=== PATIENT | female | born 1940 | race Caucasian/White ===

== ENCOUNTER 2022-04-11 14:00 | Inpatient (IN) | payer OTHER, BC ==
[~2022-04-11] VITALS: Ht 162.6 cm; Wt 70.8 kg
--- NOTE | 2022-04-11 13:40 | NUR ---
miss Odell has arrived from [facility]. She will be admitted by this web content writer to room 102-A. she has been assessed as indicated. She denies pain at this time. She states that she does have pain if she stands or moves in certain ways. She has been noted to be both pleasant and cooperative. She arrived via [facility] ambulance service unit [facility] staffed by Avni Malcolm. Her son Misha soon arrived to bedside. The plan at this time is to have surgical repair to her Right hip this evening. She states that she fell 04/05/22 but wa unaware of the fracture until a ED visit. She states that she lives in independent living at [facility] in [place].
[2022-04-11 13:45] VITALS: BP_SYST 147
[2022-04-11] MEDS ORDERED: KETOROLAC TROMETHAMINE 30 MG VIAL ONE (14:22)
--- NOTE | 2022-04-11 15:20 | NUR ---
CONSULT MEDICAL MANAGEMENT S/P HIP FRACTURE DR SUÁREZ,[facility] [phone] S/W SALLY OFFICE
[2022-04-11] MEDS ORDERED: ALEN10TA25 PO (15:49)
[2022-04-11] MEDS ORDERED: METF-518 PO (15:49)
[2022-04-11] MEDS ORDERED: TOPXL100 PO (15:49)
[2022-04-11] MEDS ORDERED: LISI1TAB55 PO (15:49)
[2022-04-11 16:08] VITALS: BP_SYST 147
[2022-04-11] MEDS ORDERED: KETOROLAC TROMETHAMINE 30 MG VIAL IVP ONE (16:45)
[2022-04-11] MEDS ORDERED: NACL 0.9% 1,000 ML IV ONE (18:15)
--- NOTE | 2022-04-11 19:45 | NUR ---
Handoff has nenita given to Erin
[2022-04-11 20:00] VITALS: BP_SYST 148
[2022-04-11] MEDS ORDERED: ENOXAPARIN SODIUM 40 MG/0.4 ML SYRINGE SUBCUT ONE (20:00)
[2022-04-11] MEDS ORDERED: ZOLPIDEM TARTRATE 5 MG TABLET PO PRN (20:15)
[2022-04-11] MEDS ORDERED: ONDANSETRON HCL 4 MG/2 ML VIAL IVP PRN (20:15)
[2022-04-11] MEDS ORDERED: POTASSIUM CHLORIDE 20 MEQ TAB.PRT.SR PO PRN (20:15)
[2022-04-11] MEDS ORDERED: MORPHINE 2 MG/ML INJ. SYRINGE IVP PRN (20:15)
[2022-04-11] MEDS ORDERED: MAGNESIUM SULFATE 50 ML IV PRN (20:15)
[2022-04-11] MEDS ORDERED: DOCUSATE SODIUM 100 MG CAPSULE PO PRN (20:15)
[2022-04-11] MEDS ORDERED: MUPIROCIN 2% TOPICAL OINTMENT 22 GM NS PRN (20:15)
[2022-04-11] MEDS ORDERED: NALOXONE HCL 0.4 MG/ML AMP (NARCAN) IVP PRN ×2 (20:15)
[2022-04-11] MEDS ORDERED: ACETAMINOPHEN 325 MG TABLET PO PRN (20:15)
[2022-04-11] MEDS ORDERED: LORazepam 2 MG/ML VIAL IVP PRN (20:15)
[2022-04-11] MEDS: NACL 0.9% 1,000 ML IV SCH (20:41)
[2022-04-11] MEDS ORDERED: HEPARIN SODIUM,PORCINE 5,000 UNITS/ML VIAL SUBCUT SCH (21:00)
[2022-04-12 02:23] VITALS: BP_SYST 132
--- NOTE | 2022-04-12 02:55 | NUR ---
CONSULT: CONSULT CALLED FOR DR. GAN I SPOKE WITH JEANNE JIN REASON FOR CONSULT: CARDIAC CLEARANCE REQUESTING CONSULT: DR. SUÁREZ DIESEL TRACTOR ENGINE MECHANIC PHONE NUMBER: [phone]
--- NOTE | 2022-04-12 02:57 | NUR ---
CONSULT FOR SEBLE KOEHLER CALLED TO PLACE A CONSULT LEFT A MESSAGE IN A MAIL BOX WITH PATIENT'S NAME AND ROOM NUMBER OUR PHONE NUMBER
--- NOTE | 2022-04-12 06:00 | NUR ---
PT RESTING COMFORTABLY IN BED, AOX3, NO DISTRESS OR DISCOMFORT NOTED, BREATHING EVEN AND UNLABORED,NO CHANGES NOTED THROUGHOUT THE SHIFT, ALL FALL PROTOCOLS MAINTAINED, MEDICATED PRN PAIN MED X1, REPOSITIONED PER COMFORT, ALL CARE RENDERED TO PT AT THIS TIME, WILL ENDORSED TO AM NURSE FOR CONTINUITY OF CARE.
[2022-04-12 06:46] LABS: BASOPHILS # (AUTO) 0.1 K/uL (0.0-0.2); BASOPHILS % (AUTO) 0.8 % (0.0-2.0); EOSINOPHILS # (AUTO) 0.1 K/uL (0.0-0.4); EOSINOPHILS % (AUTO) 1.5 % (0.0-4.0); HEMATOCRIT 34.2 % (36-48); HEMOGLOBIN 11.9 g/dL (12.0-16.0); LYMPHOCYTES # (AUTO) 1.2 K/uL (1.0-5.5); LYMPHOCYTES % (AUTO) 13.1 % (20.5-51.5); MEAN CORPUSCULAR HEMOGLOBIN 30 pg (27-31); MEAN CORPUSCULAR HGB CONC 35 % (32-36); MEAN CORPUSCULAR VOLUME 86 fL (79.0-98.0); MONOCYTES # (AUTO) 0.9 K/uL (0.0-1.0); NEUTROPHILS # (AUTO) 6.7 K/uL (1.8-7.7); NEUTROPHILS % (AUTO) 74.6 % (40.0-70.0); PLATELET COUNT (AUTO) 321 K/uL (130-430); RED BLOOD CELL COUNT(AUTO) 3.97 MIL/uL (4.2-6.2); RED CELL DISTRIBUTION WIDTH 13.7 % (9.0-15.0)
[2022-04-12 06:58] LABS: ANION GAP 11 (5-15); CALCIUM 8.5 mg/dL (8.4-11.0); CHLORIDE 94 mmol/L (98-107); CREATININE 0.55 mg/dL (0.55-1.30); GLUCOSE 99 mg/dL (70-99); POTASSIUM 3.4 mmol/L (3.5-5.1); SODIUM SERUM 128 mmol/L (136-145); UREA NITROGEN, BLOOD 10 mg/dL (8-21)
--- NOTE | 2022-04-12 07:25 | NUR ---
SHIFT REPORT REPORT GIVEN TO SHIRIN RN FOR CONTINUITY OF CARE ALL QUESTIONS WERE ANSWERED AND RN VERBALIZED UNDERSTANDING.
[2022-04-12 08:00] VITALS: BP_SYST 154
[2022-04-12] MEDS: METOPROLOL SUCCINATE 50 MG TAB.SR.24H (TOPROL XL) PO SCH (09:39)
[2022-04-12 10:20] LABS: INR 1.1 (0.8-1.2); PROTHROMBIN TIME 11.1 SECS (9.5-12.5)
[2022-04-12 10:28] LABS: BILIRUBIN,URINE NEGATIVE (NEGATIVE); BLOOD, URINE NEGATIVE (NEGATIVE); CLARITY/URINE CLEAR (CLEAR); COLOR,URINE YELLOW (YELLOW); GLUCOSE,URINE NEGATIVE (NEGATIVE); KETONES,URINE TRACE (NEGATIVE); LEUKOCYTE ESTERASE ,URINE NEGATIVE (NEGATIVE); NITRITE, URINE NEGATIVE (NEGATIVE); PH,URINE 6.5 (5.0-8.0); PROTEIN URINE NEGATIVE (NEGATIVE); UROBILINOGEN,URINE 0.2 (0.2-1.0)
[2022-04-12] MEDS: NACL 0.9% 1,000 ML IV SCH (10:33)
[2022-04-12 11:29] VITALS: BP_SYST 147
[2022-04-12 15:17] VITALS: BP_SYST 137
[2022-04-12] MEDS: ENOXAPARIN SODIUM 40 MG/0.4 ML SYRINGE SUBCUT SCH (17:23)
--- NOTE | 2022-04-12 18:00 | NUR ---
NEUROVASCULAR CHECK TO RLE INTACT. NO C/O PAIN THROUGHOUT THE SHIFT. PT REMAINS AWAKE. ALERT,AND COHERENT. PLAN IS FOR SURGERY TOMORROW AT 4:30 PM. PT AND HER SON ARE AWARE OF PLAN FOR SURGERY TOMORROW. RESPIRATIONS EVEN ET UNLABORED. PT WAS CLEARED VIA CARDIAC TODAY FOR SURGERY. POTASSIUM REPLACED PER ORDERED PO. PT CONT ON IVF'S.
--- NOTE | 2022-04-12 20:00 | NUR ---
REC'D PT IN BED AOX4, NO DISTRESS OR DISCOMFORT NOTED, BREATHING EVEN AND UNLABORED, DENIES PAIN, VITAL SIGNS STABLE, PT RESTING COMFORTABLY IN BED, ALL FALL PROTOCOLS MAINTAINED, BED IN LOWEST POSITION, CALL LIGHT WITHIN REACH, EDUCATED PT TO CALL FOR ASSISTANCE WHEN NEEDED, PT VERBALIZED UNDERSTANDING, WILL CONTINUE TO MONITOR.
[2022-04-13 00:02] VITALS: BP_SYST 133
[2022-04-13] MEDS: NACL 0.9% 1,000 ML IV SCH (00:56)
--- NOTE | 2022-04-13 04:00 | NUR ---
NO CHANGES NOTED THROUGHOUT THE SHIFT, PT RESTING COMFORTABLY IN BED, AOX4, NO DISTRESS OR DISCOMFORT NOTED, BREATHING EVEN AND UNLABORED, ALL FALL PROTOCOLS MAINTAINED, REPOSITIONS SELF PER COMFORT, WILL CONTINUE TO MONITOR.
[2022-04-13 07:04] LABS: BASOPHILS # (AUTO) 0.1 K/uL (0.0-0.2); BASOPHILS % (AUTO) 1.1 % (0.0-2.0); EOSINOPHILS # (AUTO) 0.2 K/uL (0.0-0.4); EOSINOPHILS % (AUTO) 2.6 % (0.0-4.0); HEMATOCRIT 32.7 % (36-48); HEMOGLOBIN 11.5 g/dL (12.0-16.0); LYMPHOCYTES # (AUTO) 1.1 K/uL (1.0-5.5); LYMPHOCYTES % (AUTO) 13.6 % (20.5-51.5); MEAN CORPUSCULAR HEMOGLOBIN 31 pg (27-31); MEAN CORPUSCULAR HGB CONC 35 % (32-36); MEAN CORPUSCULAR VOLUME 87 fL (79.0-98.0); MONOCYTES % (AUTO) 12.6 % (1.7-9.3); NEUTROPHILS # (AUTO) 5.7 K/uL (1.8-7.7); NEUTROPHILS % (AUTO) 70.1 % (40.0-70.0); PLATELET COUNT (AUTO) 322 K/uL (130-430); RED BLOOD CELL COUNT(AUTO) 3.76 MIL/uL (4.2-6.2); RED CELL DISTRIBUTION WIDTH 13.6 % (9.0-15.0); WHITE BLOOD COUNT (AUTO) 8.1 K/uL (4.8-10.8)
--- NOTE | 2022-04-13 07:16 | NUR ---
SHIFT CHANGE REPORT GIVEN TO BOB RUIZ FOR CONTINUITY OF CARE ALL QUESTIONS WERE ANSWERED AND RN VERBALIZED UNDERSTANDING.
[2022-04-13 07:34] LABS: ANION GAP 9 (5-15); CALCIUM 7.7 mg/dL (8.4-11.0); CHLORIDE 99 mmol/L (98-107); CREATININE 0.49 mg/dL (0.55-1.30); GLUCOSE 89 mg/dL (70-99); POTASSIUM 3.6 mmol/L (3.5-5.1); SODIUM SERUM 131 mmol/L (136-145); UREA NITROGEN, BLOOD 8 mg/dL (8-21)
[2022-04-13 08:00] VITALS: BP_SYST 128
[2022-04-13] MEDS: ENOXAPARIN SODIUM 40 MG/0.4 ML SYRINGE SUBCUT SCH (09:00)
[2022-04-13] MEDS: METOPROLOL SUCCINATE 50 MG TAB.SR.24H (TOPROL XL) PO SCH (10:34)
[2022-04-13 12:00] VITALS: BP_SYST 131
[2022-04-13 16:00] VITALS: BP_SYST 129
[2022-04-13] MEDS ORDERED: NS 1000 ML IV.SOLN IV ONE (16:35)
[2022-04-13] MEDS ORDERED: CEFAZOLIN 2 GM IVPB PREMIX 50 ML IV ONE (16:35)
[2022-04-13] MEDS ORDERED: BUPIVACAINE /PF 0.75% 10 ML VIAL INJ ONE (16:35)
[2022-04-13] MEDS ORDERED: LR 1,000 ML IV.SOLN IV ONE (16:35)
[2022-04-13] MEDS ORDERED: TRANEXAMIC ACID 1,000 MG/10 ML VIAL ONE (16:35)
[2022-04-13] MEDS ORDERED: NS IRRIG SOLN 1000 ML IR ONE (16:35)
[2022-04-13] MEDS ORDERED: PROPOFOL 200MG/ 20ML VIAL (DIPRIVAN) IV ONE (16:35)
[2022-04-13] MEDS ORDERED: METOCLOPRAMIDE HCL 10 MG/2 ML VIAL IVP PRN (17:30)
[2022-04-13] MEDS ORDERED: ONDANSETRON HCL 4 MG/2 ML VIAL IVP PRN (17:30)
[2022-04-13] MEDS ORDERED: fentaNYL CITRATE/PF 100 MCG/2 ML AMP IVP PRN ×2 (17:30)
[2022-04-13 18:00] VITALS: BP_SYST 128
--- NOTE | 2022-04-13 21:00 | NUR ---
REC'D PT IN BED FROM OR NURSE, AOX4, NO DISTRESS OR DISCOMFORT NOTED, BREATHING EVEN AND UNLABORED, DENIES PAIN, VITAL SIGNS STABLE, PT RESTING COMFORTABLY IN BED, ALL FALL PROTOCOLS MAINTAINED, BED IN LOWEST POSITION, CALL LIGHT WITHIN REACH,ABDUCTION PILLOW IN PLACE, EDUCATED PT TO CALL FOR ASSISTANCE WHEN NEEDED, PT VERBALIZED UNDERSTANDING, WILL CONTINUE TO MONITOR.
[2022-04-13 21:26] VITALS: BP_SYST 139
[2022-04-13] MEDS: CEFAZOLIN 1 GM IVPB PREMIX 50 ML IV SCH (21:37)
[2022-04-13] MEDS: MORPHINE 2 MG/ML INJ. SYRINGE IVP PRN (23:32)
[2022-04-14 00:59] VITALS: BP_SYST 128
[2022-04-14] MEDS: NACL 0.9% 1,000 ML IV SCH ×2 (04:26→19:45)
[2022-04-14] MEDS: MORPHINE 2 MG/ML INJ. SYRINGE IVP PRN ×2 (04:27→13:06)
[2022-04-14] MEDS: CEFAZOLIN 1 GM IVPB PREMIX 50 ML IV SCH (04:29)
--- NOTE | 2022-04-14 05:00 | NUR ---
BLADDER SCAN PT, OVER 900 URINE NOTED, DR. GIBSON NOTIFIED ORDER TO INSERT CARO CATH GIVEN, ORDERS NOTED AND CARRIED OUT.
--- NOTE | 2022-04-14 06:00 | NUR ---
PT RESTING COMFORTABLY IN BED, NO DISTRESS OR DISCOMFORT NOTED, BREATHING EVEN AND UNLABORED, ALL FALL PROTOCOLS MAINTAINED, REPOSITIONS PER COMFORT, WILL CONTINUE TO MONITOR.
--- NOTE | 2022-04-14 07:26 | NUR ---
SHIFT CHANGE REPORT GIVEN TO SOLOMON RUIZ FOR CONTINUITY OF CARE ALL QUESTIONS WERE ANSWERED AND RN VERBALIZED UNDERSTANDING. Addendum: 04/14/[address] [facility] Brannon Carvalho RN WRONG [facility]TRY SHIFT CHANGE REPORT GIVEN TO GERI RUIZ FOR CONTINUITY OF CARE ALL QUESTIONS WERE ANSWERED AND RN VERBALIZED UNDERSTANDING.
[2022-04-14 07:27] LABS: BASOPHILS % (AUTO) 0.4 % (0.0-2.0); EOSINOPHILS % (AUTO) 0.3 % (0.0-4.0); HEMATOCRIT 30.3 % (36-48); HEMOGLOBIN 10.6 g/dL (12.0-16.0); LYMPHOCYTES # (AUTO) 0.8 K/uL (1.0-5.5); LYMPHOCYTES % (AUTO) 8.2 % (20.5-51.5); MEAN CORPUSCULAR HEMOGLOBIN 31 pg (27-31); MEAN CORPUSCULAR HGB CONC 35 % (32-36); MEAN CORPUSCULAR VOLUME 87 fL (79.0-98.0); MONOCYTES # (AUTO) 0.9 K/uL (0.0-1.0); MONOCYTES % (AUTO) 9.3 % (1.7-9.3); NEUTROPHILS # (AUTO) 7.5 K/uL (1.8-7.7); NEUTROPHILS % (AUTO) 81.8 % (40.0-70.0); PLATELET COUNT (AUTO) 297 K/uL (130-430); RED BLOOD CELL COUNT(AUTO) 3.48 MIL/uL (4.2-6.2); RED CELL DISTRIBUTION WIDTH 13.5 % (9.0-15.0); WHITE BLOOD COUNT (AUTO) 9.2 K/uL (4.8-10.8)
[2022-04-14 07:41] LABS: ANION GAP 7 (5-15); CALCIUM 7.7 mg/dL (8.4-11.0); CHLORIDE 100 mmol/L (98-107); GLUCOSE 105 mg/dL (70-99); POTASSIUM 3.5 mmol/L (3.5-5.1); SODIUM SERUM 130 mmol/L (136-145); UREA NITROGEN, BLOOD 11 mg/dL (8-21)
[2022-04-14] MEDS ORDERED: ENOXAPARIN SODIUM 40 MG/0.4 ML SYRINGE SUBCUT SCH (09:00)
[2022-04-14] MEDS: ENOXAPARIN SODIUM 40 MG/0.4 ML SYRINGE SUBCUT SCH (09:41)
[2022-04-14] MEDS: METOPROLOL SUCCINATE 50 MG TAB.SR.24H (TOPROL XL) PO SCH (09:42)
--- NOTE | 2022-04-14 12:21 | NUR ---
Discharge Planning: NNEKA faxed pt referral to [facility] P#[phone] F#[phone] NNEKA to follow up Addendum: 04/14/22 at 1531 by Stephany Gaines DP NNEKA spoke to Nohemi [phone] at [facility] P#[phone] F#[phone] patient accepted to 113, transportation is arranged [facility] [phone] Will Call [facility]. NNEKA made CM aware patient packet taken to nurse station.
--- NOTE | 2022-04-14 16:25 | NUR ---
Wound Evaluation: Wound Consult ordered for Low Paramjit Score. Patient evaluated for a low Paramjit score of 12. Patient was awake, alert, oriented and received in a Sloan Bed with an IsoFlex KASIE mattress. Patient needs assist to turn in bed secondary to right hip fracture and recent right total hip hemiarthroplasty. Skin is intact other than right ANA incision. Recommend encourage and assist patient with repositioning side to side only every 2 hours with pillow wedge pelvic tilt as tolerated. Elevate, off-load and float bilateral heels with pillows. Offload pressure areas with pillows for pressure re-distribution. Perform skin care and monitor skin integrity Q shift. Use moisture barrier cream on moisture susceptible areas QID and PRN for soiling.
[2022-04-14 20:00] VITALS: BP_SYST 134
[2022-04-15] VITALS: BP_SYST 108
--- NOTE | 2022-04-15 | NUR ---
NO CHANGES NOTED FROM PREVIOUS ASSESSMENT, REPOSITIONED PER COMFORT, WILL CONTINUE TO MONITOR.
[2022-04-15] MEDS: MORPHINE 2 MG/ML INJ. SYRINGE IVP PRN ×2 (02:15→08:57)
--- NOTE | 2022-04-15 05:48 | NUR ---
NO S/S OF RESPIRATORY DISTRESS OR DISCOMFORT NOTED, PT RESTING COMFORTABLY IN BED ASLEEP, DENIES PAIN, DENIES N/V, AM CARE AND CARO CATH CARE DONE, ALL FALL PROTOCOLS MAINTAINED,BED IN LOWEST POSITION, CALL LIGHT WITHIN REACH,REPOSITIONS PER COMFORT, WILL CONTINUE TO MONITOR.
--- NOTE | 2022-04-15 07:10 | NUR ---
SHIFT CHANGE REPORT REPORT GIVEN TO CRISTIAN RN FOR CONTINUITY OF CARE, ALL QUESTIONS WERE ANSWERED AND RN VERBALIZED UNDERSTANDING.
[2022-04-15 08:00] VITALS: BP_SYST 113
[2022-04-15 08:27] LABS: BASOPHILS % (AUTO) 0.3 % (0.0-2.0); EOSINOPHILS % (AUTO) 0.3 % (0.0-4.0); HEMATOCRIT 27.9 % (36-48); HEMOGLOBIN 9.8 g/dL (12.0-16.0); LYMPHOCYTES # (AUTO) 1.2 K/uL (1.0-5.5); LYMPHOCYTES % (AUTO) 13.2 % (20.5-51.5); MEAN CORPUSCULAR HEMOGLOBIN 31 pg (27-31); MEAN CORPUSCULAR HGB CONC 35 % (32-36); MEAN CORPUSCULAR VOLUME 87 fL (79.0-98.0); MONOCYTES # (AUTO) 1.4 K/uL (0.0-1.0); MONOCYTES % (AUTO) 14.5 % (1.7-9.3); NEUTROPHILS # (AUTO) 6.7 K/uL (1.8-7.7); NEUTROPHILS % (AUTO) 71.7 % (40.0-70.0); PLATELET COUNT (AUTO) 282 K/uL (130-430); RED BLOOD CELL COUNT(AUTO) 3.21 MIL/uL (4.2-6.2); RED CELL DISTRIBUTION WIDTH 13.5 % (9.0-15.0); WHITE BLOOD COUNT (AUTO) 9.4 K/uL (4.8-10.8)
[2022-04-15 08:51] LABS: ANION GAP 7 (5-15); CALCIUM 7.6 mg/dL (8.4-11.0); CHLORIDE 99 mmol/L (98-107); GLUCOSE 118 mg/dL (70-99); POTASSIUM 3.5 mmol/L (3.5-5.1); SODIUM SERUM 129 mmol/L (136-145); UREA NITROGEN, BLOOD 13 mg/dL (8-21)
[2022-04-15] MEDS: METOPROLOL SUCCINATE 50 MG TAB.SR.24H (TOPROL XL) PO SCH (08:58)
[2022-04-15] MEDS: ENOXAPARIN SODIUM 40 MG/0.4 ML SYRINGE SUBCUT SCH (08:59)
[2022-04-15] MEDS: NACL 0.9% 1,000 ML IV SCH (10:13)
[2022-04-15] MEDS ORDERED: APIX2.5T PO (11:48)
[2022-04-15 12:00] VITALS: BP_SYST 110
[2022-04-15 17:19] VITALS: BP_SYST 112
== END 2022-04-15 16:20 | DRG 522 ==
LOC: SMU 14:00
PROVIDERS: ADMIT Orthopaedic Surgery Sports Medicine; ATTEND General Practice
PROC: 0SRR0JZ Replacement of Right Hip Joint, Femoral Surface with Synthetic Substitute, Open Approach (ICD-10-PCS; principal; 2022-04-13 16:45)
DX: S72.011A Unspecified intracapsular fracture of right femur, initial encounter for closed fracture (principal); E87.1 Hypo-osmolality and hyponatremia; E87.8 Other disorders of electrolyte and fluid balance, not elsewhere classified; E87.6 Hypokalemia; E11.9 Type 2 diabetes mellitus without complications; D64.9 Anemia, unspecified; W18.39XA Other fall on same level, initial encounter; Z20.822 Contact with and (suspected) exposure to COVID-19; I11.9 Hypertensive heart disease without heart failure; Z83.3 Family history of diabetes mellitus; Z87.891 Personal history of nicotine dependence; Y93.89 Activity, other specified; Y92.89 Other specified places as the place of occurrence of the external cause; Y99.8 Other external cause status; Z79.899 Other long term (current) drug therapy
CPT/HCPCS: 36415; 71045; 72170-TC; 80048; 81003; 82962; 83036; 83735; 85025; 85610-TC; 85730-TC; 86886; 86900; 86901; 87081; 88305; 88311; 93005; 93306; 97110-GP; 97112-GP; 97116-GP; 97163-GP; 97530-GP; J0690; J1650; J1885; J2270; J2405; J2704; J3490; J7030; J7120